=== PATIENT | male | born 1960 | race Two or more races ===

== ENCOUNTER 2025-03-02 13:58 | Emergency (ER) | payer OTHER ==
[~2025-03-02] VITALS: Ht 188 cm; Wt 93.0 kg
[2025-03-02] MEDS ORDERED: TRANSDERM-SCOP1 EACH TD (16:26)
[2025-03-02] MEDS ORDERED: SALINE NOSE SPR45 ML (16:38)
== END 2025-03-02 16:37 | disposition home or self-care (01) ==
LOC: ER 13:58
DX: R42 Dizziness and giddiness (principal)

== ENCOUNTER 2025-06-29 09:09 | Outpatient (CLI) | payer OTHER ==
[~2025-06-29 09:09] MED LIST: SALINE NOSE SPR45 ML; TRANSDERM-SCOP1 EACH TD
== END 2025-06-29 09:13 | disposition home or self-care (01) ==
LOC: SONOGRAMA 09:09
DX: B18.2 Chronic viral hepatitis C (principal)